=== PATIENT | female | born 1940 | race Caucasian/White ===

== ENCOUNTER 2017-02-25 10:30 | Inpatient (IN) | payer MEDICARE, BC ==
[~2017-02-25] VITALS: Ht 154.9 cm; Wt 62.1 kg
--- NOTE | ~2017-02-25 | DS ---
PATIENT'S NAME: EULA SEVERINO [facility] AGE: 76 Y [address] ROOM: [address] [address] LOCATION: [facility] ADMIT DATE: 02/25/2017 Discharge Summary DISCHARGE DATE: 02/28/2017 FAMILY PHYSICIAN: Carolina Saenz APRN ATTENDING PHYSICIAN: Abhijeet Monroy PRIMARY DIAGNOSES: 1. Recurrent acute pancreatitis. 2. Dyslipidemia. 3. Diabetes type 2 with hyperglycemia. 4. Essential hypertension. 5. Left scalp hematoma. 6. Gastroesophageal reflux disease. PRINCIPAL PROCEDURES: Done for the patient, none was indicated. LABORATORY DATA: Labs on admission, WBC on admission was 8.0, was stable throughout hospital stay, at 9.9 upon discharge; H and H on admission were 13.0 and 38.8, prior to discharge were 10.2 and 29.8; platelet on admission was 196, prior to discharge was 219. Sodium was 138, prior to discharge 142; potassium on admission was 3.9, prior to discharge was 3.6, received p.o. potassium chloride; creatinine was stable throughout hospital stay, at 0.5 upon discharge; bicarb on admission was 24, prior to discharge was 18. Liver function test was also stable throughout hospital stay. Total bilirubin was 1.3, prior to discharge was 0.4; total cholesterol was 181; triglycerides was 707; HDL was 16. Lipase was 2499, lipase prior to discharge was 507. RADIOLOGY DATA: CT head, no acute hemorrhage or midline shift, generalized atrophic changes. No skull fracture identified. Scalp swelling and hematoma formation at the high left posterior parietal area. HOSPITAL COURSE: For history of present illness, please take a look at the H and P, which was done by Dr. Jha. The patient was admitted to Med-Surgical Unit, was managed for acute pancreatitis. She was kept n.p.o. GI was consulted. She was hydrated and also pain was controlled with narcotics. After review by ID by the next day, the patient was started on clear liquid diet as her pain had gotten better. She was slowly started back on her p.o. pills. Gradually, pain continued to get better. 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 Orthostatic vital signs, which were done since then were negative. Her abdominal pain continued to improve. Such that, her diet was advanced to full regular diet, which was well tolerated without nausea, vomiting, or worsening of the abdominal pain. She did complain of a right lower quadrant pain, which was nonspecific during her admission. On the PATIENT'S NAME: EULA SEVERINO [facility] AGE: 76 Y [address] ROOM: [address] [address] LOCATION: [facility] ADMIT DATE: 02/25/2017 Discharge Summary DISCHARGE DATE: 02/28/2017 FAMILY PHYSICIAN: Carolina Saenz APRN ATTENDING PHYSICIAN: Abhijeet Monroy day of discharge, vital signs were stable, and her fenofibrate was titrated upwards given the fact that her triglyceride level was still pretty significantly high, and she was discharged home. MEDICATIONS ON DISCHARGE: 1. Aspirin 81 mg p.o. q.h.s. 2. Norvasc 5 mg p.o. daily. 3. Zetia 10 mg p.o. at bedtime. 4. Synthroid 137 mcg p.o. q.a.m. 5. Lisinopril 20 mg p.o. q.a.m. 6. Fish oil 2 capsules p.o. twice daily. 7. Omeprazole 40 mg p.o. daily p.r.n. 8. Crestor 10 mg p.o. daily. 9. Senna 1 tablet p.o. twice daily p.r.n. 10. Fenofibrate 150 mg daily, dose change. 11. Glucophage 1 g p.o. twice daily with meals. MD CYNTHIA EDWARD/ranulfo /[id number] d: 02/28/17 2354 t: 03/11/17 0957, DISCHARGE SUMMARY
--- NOTE | ~2017-02-25 | HP ---
PATIENT'S NAME: EULA SEVERINO [facility] AGE: 76 Y [address] ROOM: [place] [address] LOCATION: [facility] [place] ADMIT DATE: 02/25/2017 History & Physical DISCHARGE DATE: FAMILY PHYSICIAN: PHYSICIAN, UNKNOWN ATTENDING PHYSICIAN: Porfirio KAUR DATE OF SERVICE: CHIEF COMPLAINT: Abdominal pain. HISTORY OF PRESENT ILLNESS: The patient is a 76-year-old female with past medical history of acute pancreatitis, hypertension, diabetes mellitus, GERD, hypothyroidism, and fatty liver disease who presents here with acute pancreatitis. The patient was transferred from [facility] after she presented with epigastric pain. The patient reports that for the past week or so she has been having some abdominal discomfort. However, since Saturday which is 02/23/2017, she has been experiencing epigastric pain with burning quality and radiating diffusely throughout her abdomen. She reports that pain is constant and has been progressively getting worse. She reports association with nausea and vomiting and exacerbated with meal and movement. She reports that she has had 2 nonbloody nausea and vomiting this morning. She also reports of low appetite. She denies fever, chills, chest pain, shortness of breath, diarrhea, dizziness, and weight loss. The patient was seen in the emergency department at [place] [facility] and had a CT of abdomen which shows mild pancreatitis and elevated lipase close to 5000. The patient was started on normal saline at 125 mL an hour and given some pain medications. The patient was transferred here to our care. Of note, the patient was admitted in August 2016 with similar complaints and was found to have acute pancreatitis and treated accordingly. During that admission, she was diagnosed to have acute pancreatitis secondary to Januvia. Her Januvia was discontinued and discharged to home. Afterwards, the patient had elective gallbladder removal. PAST MEDICAL HISTORY: 1. Hypertension. 2. Diabetes mellitus. 3. Hyperlipidemia. 4. GERD. 5. Hypothyroidism. 6. Vitamin D deficiency. 7. Fatty liver disease. 8. Possible rosacea. PATIENT'S NAME: EUAL SEVERINO [facility] AGE: 76 Y [address] ROOM: [place] [address] LOCATION: [facility] ADMIT DATE: 02/25/2017 History & Physical DISCHARGE DATE: FAMILY PHYSICIAN: PHYSICIAN, UNKNOWN ATTENDING PHYSICIAN: Porfirio KAUR PAST SURGICAL HISTORY: 1. Cholecystectomy in 09/2016. 2. Shoulder rotator cuff repair. 3. Appendectomy. 4. History of ectopic with ovarian ablation. 5. Tonsillectomy with adenoidectomy. FAMILY HISTORY: Her mother has history of breast cancer. Father has history of elevated cholesterol. SOCIAL HISTORY: Lives with her son. She has 3 boys. She is a retired nurses aide and she denies smoking and reports she drinks occasionally. She reports she drinks probably once a month. MEDICATIONS: 1. Aspirin 81 mg daily. 2. Crestor 10 mg daily. 3. Cyclobenzaprine 10 mg 3 times as needed. 4. Fenofibrate 130 mg. 5. Flonase. 6. Lisinopril 20 mg. 7. Lovaza 1 g capsule. 8. Metformin 1000 mg. 9. Omeprazole 40 mg. 10. Senna laxative 8.6/50 mg tablets b.i.d. 11. Synthroid 137 mcg daily. 12. Zetia at bedtime. REVIEW OF SYSTEMS: A 10-point review of systems was reviewed, all negative except as stated in the HPI. PHYSICAL EXAMINATION: VITAL SIGNS: Temperature 99.2 degrees Fahrenheit, blood pressure 128/64, heart rate of 82, respiratory rate of 18, and saturating 92% on room air. GENERAL: The patient is alert and awake, appears to be in mild epigastric discomfort. HEENT: Nasal bridge, mild erythema, blanching erythema. Extraocular muscles intact. NECK: Supple. No JVD. HEART: Regular rate and rhythm. No MRG. LUNGS: Clear to auscultation bilaterally. No rhonchi, rales, or wheezes. PATIENT'S NAME: EULA SEVERINO [facility] AGE: 76 Y [address] ROOM: [place] [address] LOCATION: [facility] [place] ADMIT DATE: 02/25/2017 History & Physical DISCHARGE DATE: FAMILY PHYSICIAN: PHYSICIAN, UNKNOWN ATTENDING PHYSICIAN: Porfirio KAUR ABDOMEN: Moderate epigastric tenderness, bowel sounds present. No guarding, no rebound tenderness noted. SKIN: Warm to touch. EXTREMITIES: No edema. NEUROLOGY: Alert and oriented x3. Motor and sensory grossly intact. LABORATORY DATA: Lipase 4965, bilirubin 0.9, amylase 489, and triglycerides are less than 575. White blood cell count of 11.3, hemoglobin of 13.1, and hematocrit of 39.0. BUN of 16 and a creatinine of 0.52, and glucose of 223. ASSESSMENT AND PLAN: The patient is a 76-year-old female with past medical history of acute pancreatitis, diabetes mellitus, hypertension, and hypertriglyceridemia, who presents here with acute pancreatitis from the [place] [facility]. 1. Acute pancreatitis - the patient has a history of acute pancreatitis in early 2015, was deemed to be secondary to Januvia and Januvia was stopped. However, patient presents here with repeated acute pancreatitis. Of note, also her gallbladder was taken out at the end of 2015. Etiology of acute pancreatitis is unknown. The patient denies frequent alcohol use. There are some medications that might cause these symptoms which is one of them is lisinopril. We will hold lisinopril. We will consult Gastroenterology. The patient was seen by Gastroenterology on last admission for the same reason. Might benefit from magnetic resonance cholangiopancreatography for further investigation. We will treat with IV fluids and pain control. We will keep the patient n.p.o. We will have daily lipase, renal functional panel, liver function tests, and CBC. 2. Diabetes mellitus, type 2. We will hold metformin. We will start the patient on sliding scale insulin. 3. Hypertension. We will discontinue lisinopril as lisinopril can be a cause of acute pancreatitis. We will start amlodipine. 4. Hypertriglyceridemia. We will repeat triglyceride level. In the past has been elevated, however, not greater than 1000 to fully give reason for acute pancreatitis. I highly doubt secondary to triglycerides due to its level. We will repeat triglyceride level. 5. Hypothyroid. We will continue home medication. 6. Gastroesophageal reflux disease, on PPI. 7. Deep venous thrombosis prophylaxis. We will start the patient on heparin subcutaneous prophylactic dose. 8. Abdominal pain, on pain control. 9. Discussed about code status. The patient is a full code. Greater than 30 minutes were spent on preparing plan and discussing with the patient. We will admit the patient to Med-Surg and consult Gastroenterology. PATIENT'S NAME: EULA SEVERINO [facility] AGE: 76 Y [address] ROOM: [address] [address] LOCATION: [facility] [place] ADMIT DATE: 02/25/2017 History & Physical DISCHARGE DATE: FAMILY PHYSICIAN: PHYSICIAN, PAUL ATTENDING PHYSICIAN: Porfirio KAUR MD SARI JALLOH/ranulfo /[id number] D: [id number] T: [id number] HISTORY & PHYSICAL
--- NOTE | ~2017-02-25 | CON ---
PATIENT'S NAME: EULA SEVERINO [facility] AGE: 76 Y [address] ROOM: [address] [address] LOCATION: [facility] ADMIT DATE: 02/25/2017 Consultation DISCHARGE DATE: FAMILY PHYSICIAN: PHYSICIAN, UNKNOWN ATTENDING PHYSICIAN: Porfirio KAUR DATE OF CONSULTATION: 02/25/2017 REASON FOR CONSULTATION: Acute pancreatitis. HISTORY OF PRESENT ILLNESS: This is a very pleasant, 76-year-old female who is known to us from a recent hospitalization in August secondary to acute pancreatitis. At that time, the patient had been on Januvia as well as had mild elevation of triglycerides in the 300s. It was thought at that time that her pancreatitis was secondary to mild hypertriglyceridemia as well as possible Januvia. The patient was dismissed and did well. She was removed off Januvia without any complaints. The patient was then readmitted on February 25, 2017. She does state at that time she began having mid epigastric discomfort with burning and radiation throughout her abdomen beginning on 02/23/2017. This was accompanied with nausea and vomiting and exacerbated with food ingestion as well as movement. The patient also complains of decrease in her appetite as well as significant constipation. She was evaluated and admitted in the ER with elevated lipase of greater than 4000 and transferred to [facility] for definitive care. The patient was seen and examined. Post pancreatitis admit in August 2016, she did undergo cholecystectomy electively. The patient describes her pain diffusely throughout her abdomen. She does deny any fever or chills at home. She notes decreased appetite as well as significant fatigue. The patient currently denies any chest pain, chest pressure, shortness of breath, fever, chills, night sweats, or weight loss. PAST MEDICAL HISTORY: Hypertension, diabetes mellitus, hyperlipidemia, GERD, hypothyroidism, vitamin D deficiency, fatty liver disease, and questionable rosacea. PAST SURGICAL HISTORY: Cholecystectomy in September 2016, shoulder rotator cuff repair, appendectomy, history of ectopic with ovarian ablation, and tonsillectomy with adenoidectomy. SOCIAL HISTORY: The patient lives with her son. She has 3 sons. She is a retired nurse's PATIENT'S NAME: EULA SEVERINO [facility] AGE: 76 Y [address] ROOM: [facility] [place] [address] LOCATION: [facility] ADMIT DATE: 02/25/2017 Consultation DISCHARGE DATE: FAMILY PHYSICIAN: PHYSICIAN, UNKNOWN ATTENDING PHYSICIAN: Porfirio KAUR. She denies any smoking. She drinks alcohol on a very limited social basis. FAMILY HISTORY: The patient's mother had breast cancer. The patient's father had elevated cholesterol. ALLERGIES: NO KNOWN MEDICATION ALLERGIES. CURRENT MEDICATIONS: Please refer to the medication administration record. REVIEW OF SYSTEMS: A 10-point review of systems was completed, all were negative except for those identified in the History of Present Illness. PHYSICAL EXAMINATION: GENERAL: A very pleasant, 76-year-old female, sitting in a chair, who appears to be in no acute distress. VITAL SIGNS: Temperature 99.2, pulse of 82, respirations of 18, blood pressure 128/64, and oxygen saturation is 92% on room air. SKIN: [place], warm, and dry. No jaundice. Noted rosacea to bilateral cheeks and nose. HEENT: Head is normocephalic and atraumatic. Pupils are equal, round, and reactive to light. Sclerae are clear, nonicteric. Oral mucosa is pink and moist. No thyromegaly. NECK: Soft and supple. CARDIOVASCULAR: Regular. Normal S1 and S2. RESPIRATORY: Respirations even and unlabored. Lungs clear to auscultation. ABDOMEN: Soft, round, and distended. Tender throughout. Bowel sounds hypoactive x4 quadrants. MUSCULOSKELETAL: No muscle weakness or atrophy. EXTREMITIES: No clubbing, cyanosis, or edema. NEUROLOGICAL: Grossly nonfocal. LABORATORY AND DIAGNOSTIC DATA: Current lipid panel is pending at this time. White blood cell count 8.0, hemoglobin 13.0, hematocrit of 38.8, MCV is 92.8, and platelets of 196. Chemistry panel includes a glucose of 174, BUN of 9, creatinine 0.8, sodium 138, potassium of 3.9, chloride of 105, and CO2 of 24. Albumin of 3.0. AST of 28, ALT of 39, and alkaline phosphatase of 37. Total bilirubin 1.3. Lipase on admission was 4518. No amylase was completed. She did undergo a CT abdomen and pelvis at an outside facility. Per verbal report, it did show mild pancreatitis, though we are pending receipt of imaging as well as PATIENT'S NAME: EULA SEVERINO [facility] AGE: 76 Y [address] ROOM: [address] [place] [id number] LOCATION: [facility] [place] ADMIT DATE: 02/25/2017 Consultation DISCHARGE DATE: FAMILY PHYSICIAN: PHYSICIAN, UNKNOWN ATTENDING PHYSICIAN: Porfirio KAUR official report. ASSESSMENT AND PLAN: Again, this is a pleasant, 76-year-old female with a past medical history of acute pancreatitis, last episode in August 2016. At that time, it was likely related to Januvia as well as questionable hypertriglyceridemia. 1. Acute pancreatitis. The patient does have a history of acute pancreatitis as well as elective gallbladder surgery in September 2016. At her previous bout, it was thought that the pancreatitis was secondary to Januvia, and this has been stopped. The patient's lipase was significantly elevated at greater than 4000 on admission. Current triglycerides are pending at this time as likely causes secondary to hypertriglyceridemia. We do recommend to continue n.p.o. status for this patient as well as aggressive IV hydration. 2. Hypertriglyceridemia. Previous evaluation of medical record did show triglycerides of greater than 300. Her most recent triglyceride level completed at an outside facility was 575. A recheck of triglycerides was completed and currently pending. We will await for the results of this as this most likely is the cause of the patient's acute pancreatitis. Further recommendations to be given status post receipt of her triglyceride level. Thank you for this consult and allowing us to participate in the care of this patient. RUT RAMSAY APRN FOR MD CARLTON BEAVER/ranulfo /[id number] d: 02/26/17 1217 t: 02/26/17 1326, CONSULTATION REPORT
--- NOTE | ~2017-02-25 | CON ---
PATIENT'S NAME: EULA SEVERINO [facility] AGE: 76 Y [address] ROOM: [address] [address] [place] [facility] [place]: 02[place]25/2017 Consultation DISCHARGE DATE: FAMILY PHYSICIAN: PHYSICIAN, UNKNOWN ATTENDING PHYSICIAN: Porfirio KAUR DATE OF CONSULTATION: 02/25/2017 REASON FOR CONSULTATION: Acute pancreatitis. HISTORY OF PRESENT ILLNESS: This is a very pleasant, 76-year-old female who is known to us from a recent hospitalization in August secondary to acute pancreatitis. At that time, the patient had been on Januvia as well as had mild elevation of triglycerides in the 300s. It was thought at that time that her pancreatitis was secondary to mild hypertriglyceridemia as well as possible Januvia. The patient was dismissed and did well. She was removed off Januvia without any complaints. The patient was then readmitted on February 25, 2017. She does state at that time she began having mid epigastric discomfort with burning and radiation throughout her abdomen beginning on 02/23/2017. This was accompanied with nausea and vomiting and exacerbated with food ingestion as well as movement. The patient also complains of decrease in her appetite as well as significant constipation. She was evaluated and admitted in the ER with elevated lipase of greater than 4000 and transferred to [facility] for definitive care. The patient was seen and examined. Post pancreatitis admit in August 2016, she did undergo cholecystectomy electively. The patient describes her pain diffusely throughout her abdomen. She does deny any fever or chills at home. She notes decreased appetite as well as significant fatigue. The patient currently denies any chest pain, chest pressure, shortness of breath, fever, chills, night sweats, or weight loss. PAST MEDICAL HISTORY: Hypertension, diabetes mellitus, hyperlipidemia, GERD, hypothyroidism, vitamin D deficiency, fatty liver disease, and questionable rosacea. PAST SURGICAL HISTORY: Cholecystectomy in September 2016, shoulder rotator cuff repair, appendectomy, history of ectopic with ovarian ablation, and tonsillectomy with adenoidectomy. SOCIAL HISTORY: The patient lives with her son. She has 3 sons. She is a retired nurse's PATIENT'S NAME: EULA SEVERINO [facility] AGE: 76 Y [address] [place] [facility] [place] [address] [place] [facility] [place]: 02/25/2017 Consultation DISCHARGE DATE: FAMILY PHYSICIAN: PHYSICIAN, UNKNOWN ATTENDING PHYSICIAN: Porfirio KAUR. She denies any smoking. She drinks alcohol on a very limited social basis. FAMILY HISTORY: The patient's mother had breast cancer. The patient's father had elevated cholesterol. ALLERGIES: NO KNOWN MEDICATION ALLERGIES. CURRENT MEDICATIONS: Please refer to the medication administration record. REVIEW OF SYSTEMS: A 10-point review of systems was completed, all were negative except for those identified in the History of Present Illness. PHYSICAL EXAMINATION: GENERAL: A very pleasant, 76-year-old female, sitting in a chair, who appears to be in no acute distress. VITAL SIGNS: Temperature 99.2, pulse of 82, respirations of 18, blood pressure 128/64, and oxygen saturation is 92% on room air. SKIN: [place], warm, and dry. No jaundice. Noted rosacea to bilateral cheeks and nose. HEENT: Head is normocephalic and atraumatic. Pupils are equal, round, and reactive to light. Sclerae are clear, nonicteric. Oral mucosa is pink and moist. No thyromegaly. NECK: Soft and supple. CARDIOVASCULAR: Regular. Normal S1 and S2. RESPIRATORY: Respirations even and unlabored. Lungs clear to auscultation. ABDOMEN: Soft, round, and distended. Tender throughout. Bowel sounds hypoactive x4 quadrants. MUSCULOSKELETAL: No muscle weakness or atrophy. EXTREMITIES: No clubbing, cyanosis, or edema. NEUROLOGICAL: Grossly nonfocal. LABORATORY AND DIAGNOSTIC DATA: Current lipid panel is pending at this time. White blood cell count 8.0, hemoglobin 13.0, hematocrit of 38.8, MCV is 92.8, and platelets of 196. Chemistry panel includes a glucose of 174, BUN of 9, creatinine 0.8, sodium 138, potassium of 3.9, chloride of 105, and CO2 of 24. Albumin of 3.0. AST of 28, ALT of 39, and alkaline phosphatase of 37. Total bilirubin 1.3. Lipase on admission was 4518. No amylase was completed. She did undergo a CT abdomen and pelvis at an outside facility. Per verbal report, it did show mild pancreatitis, though we are pending receipt of imaging as well as PATIENT'S NAME: EULA SEVERINO [facility] AGE: 76 Y [address] ROOM: [id number] [place], [place] [address] [place] [facility] [place]: 02/25/2017 Consultation DISCHARGE DATE: FAMILY PHYSICIAN: PHYSICIAN, UNKNOWN ATTENDING PHYSICIAN: Porfirio KAUR official report. ASSESSMENT AND PLAN: Again, this is a pleasant, 76-year-old female with a past medical history of acute pancreatitis, last episode in August 2016. At that time, it was likely related to Januvia as well as questionable hypertriglyceridemia. 1. Acute pancreatitis. The patient does have a history of acute pancreatitis as well as elective gallbladder surgery in September 2016. At her previous bout, it was thought that the pancreatitis was secondary to Januvia, and this has been stopped. The patient's lipase was significantly elevated at greater than 4000 on admission. Current triglycerides are pending at this time as likely causes secondary to hypertriglyceridemia. We do recommend to continue n.p.o. status for this patient as well as aggressive IV hydration. 2. Hypertriglyceridemia. Previous evaluation of medical record did show triglycerides of greater than 300. Her most recent triglyceride level completed at an outside facility was 575. A recheck of triglycerides was completed and currently pending. We will await for the results of this as this most likely is the cause of the patient's acute pancreatitis. Further recommendations to be given status post receipt of her triglyceride level. Thank you for this consult and allowing us to participate in the care of this patient. RUT RAMSAY APRN FOR MD CARLTON BEAVER/ranulfo /[id number] d: 02/26/177 t: 03/04/17 1644, CONSULTATION REPORT
--- NOTE | ~2017-02-25 | DS ---
PATIENT'S NAME: EULA SEVERINO [facility] AGE: 76 Y [address] ROOM: [address] [address] [place]: [facility] [place]: 02/25/2017 Discharge Summary DISCHARGE DATE: 02/28/2017 FAMILY PHYSICIAN: Carolina Saenz APRN ATTENDING PHYSICIAN: Abhijeet Monroy ADDENDUM: Addendum to discharge summary completed by Dr. Antony Lao. The patient was discharged home mistakenly without her discharge prescription medications. A call was placed by the nurse manager assessment to the patient to notify her. She was unable to come back and retrieve her prescriptions. On March 04, I was able to call prescriptions to [facility] as requested by the patient. There would be a change in her fenofibrate from 150 mg to 145 mg per insurance request. Correction of discharge medications, prescriptions called: 1. Amlodipine 5 mg p.o. daily. 2. Fenofibrate 145 mg daily. HINA DAMON APRN, APRN FOR MD KELIN EDWARD/ranulfo /[id number] d: t: 03/05/17 1015, DISCHARGE SUMMARY
[~2017-02-25 10:30] MED LIST changes: -FISH OIL 1,0001 EAC3 PO; -NORVASC5 MG PO
--- NOTE | 2017-02-25 12:26 | NUR ---
Pt is 76 y/o female admit for acute pancreatitis for hospitalist. No allergies. Pt alert and oriented x3. Hx htn,hyperlipids,DM type 2,WALES, gerd,hypothyroidism,hematuria,urgency/frequency,leaking/dribbling, pancreatitis,squamous cell nose,lip,and ear. Pt resides at home with her son. Came from [facility] where she was inpatient since yesterday. She states 2 weeks ago her stomach felt mooney and bloated and had abd pain similar to when she had pancreatitis before. She reports she went to [facility] yesterday around noon and was admitted there. Came here via ambulance.
[2017-02-25] MEDS ORDERED: FISH OIL 1,0001 EAC3 PO (14:30)
[2017-02-25 15:55] LABS: HEMATOCRIT 38.8 % (33.0-46.0); MCH 31.1 pg (27.0-34.0); MCHC 33.5 gm/dL (32.0-36.5); MCV 92.8 fl (83.0-98.0); MPV 10.1 fl (9.4-12.4); PLATELET COUNT 196 K/uL (150-450); RDW-CV 13.9 % (11.9-14.6)
[2017-02-25 16:00] LABS: RBC 4.18 M/uL (3.50-5.50)
[2017-02-25 16:14] LABS: ALK PHOS 37 IU/L (33-138); ALT 39 IU/L (12-78); ANION GAP 12.9 (10.0-19.0); AST 28 IU/L (10-40); BLOOD UREA NITROGEN 9 mg/dL (6-24); CALCIUM 8.3 mg/dL (8.5-10.5); CHLORIDE 105 mMol/L (96-110); CO2 24 mMol/L (22-32); CREATININE 0.8 mg/dL (0.5-1.1); ESTIMATED GFR (MDRD EQUATION) > 60; POTASSIUM 3.9 mMol/L (3.7-5.1); SODIUM 138 mMol/L (135-145); TOTAL BILIRUBIN 1.3 mg/dL (0.0-1.5); TOTAL PROTEIN 7.1 g/dL (6.0-8.4)
[2017-02-25 16:29] LABS: ABSOLUTE NEUTROPHIL CT (ANC) 6.4 K/uL (1.8-7.8); BANDED NEUTROPHIL # 1.6 K/uL (0.0-0.1); BANDED NEUTROPHILS % 20 %; LYMPHOCYTE % 12 %; MONOCYTE # 0.6 K/uL (0.0-1.0); SEGMENTED NEUTROPHIL # 4.8 K/uL (1.8-7.8); SEGMENTED NEUTROPHIL % 60 %
--- NOTE | 2017-02-25 19:01 | NUR ---
Significant Event: PT A/O. VSS ON RA, AFEBRILE. AMBULATES WITH SBA. REMINDED TO CALL STAFF, STATES SHE DOESNT NEED TO. TABS ALARM IN CHAIR FOR SAFETY. IVF RUNNING NS @ 200ML/HR TO R FA. PT IS NPO, MAY HAVE SIPS WITH MEDS. PRN MORPHINE X1 AT 1430 FOR 4/10 PAIN. RELIEF NOTED. GI CONSULT. STRICT I/O. Follow up: MONITOR PAIN, FALL PRECAUTIONS, NPO
[2017-02-26 06:16] LABS: HEMATOCRIT 32.2 % (33.0-46.0); HEMOGLOBIN 10.9 g/dL (10.0-15.0); MCH 31.4 pg (27.0-34.0); MCHC 33.9 gm/dL (32.0-36.5); MCV 92.8 fl (83.0-98.0); MPV 10.1 fl (9.4-12.4); PLATELET COUNT 179 K/uL (150-450); RBC 3.47 M/uL (3.50-5.50); RDW-CV 14.2 % (11.9-14.6); WBC 8.3 K/uL (4.0-11.0)
[2017-02-26 06:35] LABS: ALBUMIN 2.5 gm/dL (3.5-5.0); ALK PHOS 26 IU/L (33-138); ALT 27 IU/L (12-78); ANION GAP 15.5 (10.0-19.0); AST 22 IU/L (10-40); BLOOD UREA NITROGEN 9 mg/dL (6-24); CHLORIDE 109 mMol/L (96-110); CO2 21 mMol/L (22-32); CREATININE 0.6 mg/dL (0.5-1.1); ESTIMATED GFR (MDRD EQUATION) > 60; POTASSIUM 3.5 mMol/L (3.7-5.1); SODIUM 142 mMol/L (135-145); TOTAL PROTEIN 6.1 g/dL (6.0-8.4)
[2017-02-26 07:14] LABS: LYMPHOCYTE # 1.6 K/uL (0.8-4.0); LYMPHOCYTE % 19 %; MONOCYTE # 1.2 K/uL (0.0-1.0); SEGMENTED NEUTROPHIL # 3.4 K/uL (1.8-7.8); SEGMENTED NEUTROPHIL % 41 %
[2017-02-26 07:15] LABS: ABSOLUTE NEUTROPHIL CT (ANC) 5.6 K/uL (1.8-7.8); BANDED NEUTROPHIL # 2.2 K/uL (0.0-0.1); BANDED NEUTROPHILS % 26 %
--- NOTE | 2017-02-26 08:49 | NUR ---
Significant Event: Pt is A&O x 3. Came from [place] with Pancreatitis. NPO status, but can take meds with sips. INSTRUCTIONAL LEADER called at 0108 for fall in the bathroom. Pt was unresponsive, but came to. Was able to get up in wheelcair with assist and back to bed. saw patient right away and performed neuro checks. Pt went down for CT showing hematoma (goose egg) in posterior left side of head. Patient is now a high fall risk. IV to R) wrist with 200ml/hr NS running. Complaints of pain post fall, ice applied. Follow up: Continue to monitor neuro status.
--- NOTE | 2017-02-26 15:52 | NUR ---
Significant Event: Pt c/o intermittent right flank pain, some relief with IV MS. Up with 1 assist. Bed alarm on at all times, d/t fall last night, pt can't be left alone in br. Forgetful at times. Clear liquid diet. Decreased IVF to 75ml/hr, orthostatic VS now and q am. KCL 40 meq IV over 4 hrs, tylenol prn. Follow up:
--- NOTE | 2017-02-27 04:53 | NUR ---
Significant event: Patient complained of right flank pain and headache. Tylenol was given at 2230. Patient up with one assist. Continuous supervision in BR. Alarms at all times. Patient is A&O x 3 but forgetful. Clear liquid diet, tolerates well. IV to R) wrist, NS 75ml/hr. Patient has rested well all night. VSS. SBP in 130s. Orthostatic VS every morning. Follow up: Continue per plan of care.
[2017-02-27 05:11] LABS: BASOPHIL # 0.1 K/uL (0.0-0.2); BASOPHIL % 0.5 %; EOSINOPHIL # 0.2 K/uL (0.0-0.5); EOSINOPHIL % 1.7 %; HEMATOCRIT 29.9 % (33.0-46.0); IMMATURE GRANULOCYTE % 0.4 %; LYMPHOCYTE # 1.5 K/uL (0.8-4.0); LYMPHOCYTE % 15.2 %; MCH 31.2 pg (27.0-34.0); MCHC 33.4 gm/dL (32.0-36.5); MCV 93.1 fl (83.0-98.0); MONOCYTE # 0.9 K/uL (0.0-1.0); MONOCYTE % 9.7 %; MPV 9.9 fl (9.4-12.4); NEUTROPHIL % 72.5 %; NRBC % 0 /100WBC (0-0.00); PLATELET COUNT 177 K/uL (150-450); RBC 3.21 M/uL (3.50-5.50); RDW-CV 14.5 % (11.9-14.6); WBC 9.7 K/uL (4.0-11.0)
[2017-02-27 05:32] LABS: ALBUMIN 2.4 gm/dL (3.5-5.0); ALK PHOS 36 IU/L (33-138); ALT 27 IU/L (12-78); ANION GAP 12.7 (10.0-19.0); AST 29 IU/L (10-40); BLOOD UREA NITROGEN 10 mg/dL (6-24); CALCIUM 8.4 mg/dL (8.5-10.5); CHLORIDE 110 mMol/L (96-110); CO2 23 mMol/L (22-32); CREATININE 0.6 mg/dL (0.5-1.1); ESTIMATED GFR (MDRD EQUATION) > 60; POTASSIUM 3.7 mMol/L (3.7-5.1); SODIUM 142 mMol/L (135-145); TOTAL PROTEIN 6.3 g/dL (6.0-8.4)
[2017-02-27 05:40] LABS: TOTAL BILIRUBIN 0.7 mg/dL (0.0-1.5)
--- NOTE | 2017-02-27 18:01 | NUR ---
Significant Event:PT. UP TO BR WITH STANDBY ASSIST AND MONITOR. VOIDS CLEAR YELLOW URINE. C/O HEADACHE TODAY AND LAST ORAL MED WAS 1455. SLEPT THIS AFTERNOON AND STATES FEELS BETTER. C/O NECK AND HEAD PAIN AND STATES ITS FROM FALLING. SLIGHTLY FORGETFUL. AMBULATED IN HALLWAY AND STEADY GAIT. UP TO CHAIR. EATING SOFT DIET AND 50%. IV RFA S/L'D. Follow up:
--- NOTE | 2017-02-28 04:07 | NUR ---
Significant Event: Patient has complained of neck pain. Warm blanket and Tylentol given at 2037, provided relief. Patient up with standby assist. Continuous supervision in BR. Alarms at all times. Patient is A&O x 3 but forgetful. ADA diet has been tolerated well. IV to right wrist SL. Follow up: Possible D/C today.
[2017-02-28 06:06] LABS: BASOPHIL % 0.4 %; EOSINOPHIL # 0.2 K/uL (0.0-0.5); EOSINOPHIL % 1.8 %; HEMATOCRIT 29.8 % (33.0-46.0); HEMOGLOBIN 10.2 g/dL (10.0-15.0); IMMATURE GRANULOCYTE # 0.1 K/uL (0.0-0.3); IMMATURE GRANULOCYTE % 1.1 %; LYMPHOCYTE # 1.4 K/uL (0.8-4.0); LYMPHOCYTE % 13.7 %; MCH 31.4 pg (27.0-34.0); MCHC 34.2 gm/dL (32.0-36.5); MCV 91.7 fl (83.0-98.0); MONOCYTE # 0.8 K/uL (0.0-1.0); MONOCYTE % 8.4 %; NEUTROPHIL # (ANC) 7.4 K/uL (1.8-7.8); NEUTROPHIL % 74.6 %; NRBC % 0.2 /100WBC (0-0.00); RBC 3.25 M/uL (3.50-5.50); RDW-CV 14.3 % (11.9-14.6); WBC 9.9 K/uL (4.0-11.0)
[2017-02-28 06:08] LABS: PLATELET COUNT 219 K/uL (150-450)
[2017-02-28 06:11] LABS: ALBUMIN 2.4 gm/dL (3.5-5.0); ALK PHOS 46 IU/L (33-138); ALT 38 IU/L (12-78); ANION GAP 16.6 (10.0-19.0); AST 40 IU/L (10-40); BLOOD UREA NITROGEN 11 mg/dL (6-24); CALCIUM 8.9 mg/dL (8.5-10.5); CHLORIDE 111 mMol/L (96-110); CO2 18 mMol/L (22-32); CREATININE 0.5 mg/dL (0.5-1.1); ESTIMATED GFR (MDRD EQUATION) > 60; POTASSIUM 3.6 mMol/L (3.7-5.1); SODIUM 142 mMol/L (135-145); TOTAL PROTEIN 6.8 g/dL (6.0-8.4)
[2017-02-28 06:14] LABS: TOTAL BILIRUBIN 0.4 mg/dL (0.0-1.5)
--- NOTE | 2017-02-28 13:47 | NUR ---
I have examined the student charting and find it acceptable. JOSH Malone
[2017-02-28] MEDS ORDERED: NORVASC5 MG PO (14:53)
--- NOTE | 2017-02-28 15:00 | NUR ---
D: Orders received for the patient to be discharged to home today. I: Dismissal instructions were prepared and reviewed with the patient virtually. The following information was discussed including [place] teaching provided: Understanding Pancreatitis, Discharge instructions for acute pancreatitis, Norvasc, Taking Norvasc, Preventing DVT, and Understanding Dietary Fat. Reviewed follow up appointments for PCP and [facility] and all new prescription. R: The patient verbalized understanding of the dismissal education at the time of teaching with no further questions. P: The above information was shared with the primary nurse, charge nurse and nurses aide that the dismissal education was completed. The patient is ready for discharge to the front door via wheel chair by nursing staff.
--- NOTE | 2017-02-28 16:21 | NUR ---
PT. DISCHARGE INSTRUCTIONS GIVEN BY VIRTUAL NURSE AND PT VERBALIZED UNDERSTANDING OF. IV D/C'D PER DISCHARGE. AD ETIENNE IN ROOM. DENIES PAIN, N/V. DISCHARGED PER WHEELCHAIR BY THIS NURSE WITH DAUGHTER TO FRONT DOOR.
== END 2017-02-28 16:00 | disposition disaster alternative care site (69) | DRG 440 ==
LOC: GMSU 11:49
PROVIDERS: ADMIT Internal Medicine
DX: K85.90 Acute pancreatitis without necrosis or infection, unspecified (principal); E11.9 Type 2 diabetes mellitus without complications; K76.0 Fatty (change of) liver, not elsewhere classified; I10 Essential (primary) hypertension; E03.9 Hypothyroidism, unspecified; E78.1 Pure hyperglyceridemia; E78.5 Hyperlipidemia, unspecified; K21.9 Gastro-esophageal reflux disease without esophagitis; E55.9 Vitamin D deficiency, unspecified; K59.00 Constipation, unspecified; L71.9 Rosacea, unspecified; S00.03XA Contusion of scalp, initial encounter; Z23 Encounter for immunization
CPT/HCPCS: J1644; J2270; J2405; J3480; J7030

== ENCOUNTER → 2017-02-25 | Outpatient (CLI) | payer MEDICARE, BC ==
[~2017-02-25] MED LIST: ASPIRIN LO-DOSE81 MG PO; CRESTOR10 MG PO; FENOFIBRATE145 MG PO; FISH OIL 1,0001 EAC3 PO; FLONASE 50 MCG/16 GM NOSE; GLUCOPHAGE1000 MG PO; JANUMET 50-1,01 EACH PO; LEVOTHROID (S137 MCG PO; LOVAZA1 GM PO; NORCO 5-325 MG1 TAB PO; NORVASC5 MG PO; OMEPRAZOLE40 MG PO; PRINIVIL (ZESTR20 MG PO; SENNA-S TABLET1 EACH PO; VITAMIN D-32000 UNI1 PO; ZETIA10 MG PO
== END | disposition disaster alternative care site (69) ==
LOC: GAMB 10:38
DX: R10.84 Generalized abdominal pain (principal); K85.90 Acute pancreatitis without necrosis or infection, unspecified; Z79.82 Long term (current) use of aspirin; Z79.899 Other long term (current) drug therapy
CPT/HCPCS: A0425; A0426